=== PATIENT | female | born 1975 | race Caucasian/White ===

== ENCOUNTER 2017-03-17 10:02 | Emergency (ER) | payer SELFPAY ==
[~2017-03-17 10:02] MED LIST: AMOXICILLIN500 MG; AMOXICILLIN875 MG PO; AZITHROMYCIN250 M1 PO; BACTRIM1 TAB PO; COLACE100 MG PO; FLONASE16 G1; GEODON40 MG PO; LORTAB 5/500 TA1 TAB; MIRALAX12 EA PO; MOBIC15 M1 PO; NO HOME MEDICATION XX; NO HOME MEDS; NO MEDICATIONS; NORCO 5/325 TAB1 TAB PO; NORCO 5/3251 TA1 PO; NORTRIPTYLINE H10 MG PO; PREDNISONE10 MG PO; PROVENTIL HFA6.7 G1 INH; PROVENTIL HFA6.7 G1 PO; PROVENTIL HFA6.7 GM IH; PROVENTIL17 GM IH; TOBREX5 M1 OP; TORADOL10 MG PO; TRAMADOL HCL50 MG PO; TYLENOL W/CODEI1 TAB PO; ULTRAM50 MG PO; ZITHROMAX1 G/PKT PO; ZITHROMAX250MG Z-PAK PO
[2017-03-17] MEDS ORDERED: ZITHROMAX250 M1 PO (12:32)
[2017-03-17] MEDS ORDERED: PROMETHAZINE-C118 ML PO (12:32)
[2017-03-17] MEDS ORDERED: PREDNISONE10 M1 PO (12:32)
== END 2017-03-17 12:53 ==
LOC: EDMED 10:02
DX: J40 Bronchitis, not specified as acute or chronic (principal); J32.9 Chronic sinusitis, unspecified; F17.200 Nicotine dependence, unspecified, uncomplicated
CPT/HCPCS: J7512